=== PATIENT | male | born 1945 | race Caucasian/White ===

== ENCOUNTER 2018-07-06 07:11 | Outpatient (CLI) | payer BC, MEDICARE ==
[2018-07-06 11:20] LABS: Anion Gap 13 mmol/L (10-20); BUN (Urea Nitrogen) 15 mg/dL (8.4-25.7); Calc. Creatinine Clearance 0 mL/min (70-130); Calcium 10.3 mg/dL (7.8-10.44); Carbon Dioxide 27 mmol/L (23-31); Chloride 107 mmol/L (98-107); Estimated GFR-MDRD 88; Glucose 97 mg/dL (83-110); Potassium 4.3 mmol/L (3.5-5.1); Sodium 143 mmol/L (136-145)
[2018-07-06 11:28] LABS: Bilirubin Negative (Negative); Blood, Urine Negative (Negative); Clarity CLEAR (Clear); Glucose, Urine (Dipstick) Negative (Negative); Leukocyte Negative (Negative); Nitrite Negative (Negative); Protein, Urine (Dipstick) Negative (Neg-Trace); Specific Gravity, Urine 1.008 (1.002-1.036); Urobilinogen 0.2 mg/dL (0.2-1.0); pH, Urine 7.5 (5.0-9.0)
[2018-07-06 11:31] LABS: Bacteria/HPF None Seen HPF (None Seen); Hyaline Casts/LPF 0-3 HYALINE CAST LPF (0-3 Hyaline); RBC/HPF 0-3 HPF (0-3); Squamous Epithelial None Seen HPF (0-3); WBC/HPF 0-3 HPF (0-3)
== END 2018-07-06 07:12 | disposition home or self-care (01) ==
LOC: LABBT 07:11
PROVIDERS: ATTEND Orthopaedic Surgery
DX: Z01.818 Encounter for other preprocedural examination (principal); M19.011 Primary osteoarthritis, right shoulder
CPT/HCPCS: 80048; 81001; 93005; 93010

== ENCOUNTER 2018-07-06 09:15 | Inpatient (IN) | payer BC, MEDICARE ==
[2018-07-08 07:47] LABS: Hemoglobin 15.2 g/dL (14.0-18.0); Mean Corpuscular HGB CONC 34.6 g/dL (32.0-36.0); Mean Corpuscular Hemoglobin 31.2 pg (27.0-31.0); Mean Corpuscular Volume 90.2 fL (78.0-98.0); Mean Platelet Volume 5.8 fL (7.4-10.4); Platelet Count 266 thou/uL (130-400); RBC Distribution Width 11.9 % (11.5-14.5); Red Blood Cell (RBC) Count 4.86 mill/uL (4.70-6.10)
[2018-07-08] MEDS ORDERED: Tranexamic Acid 1,000 MG/10 ML VIAL ONE ×2 (08:04→12:27)
[2018-07-08] MEDS ORDERED: Sodium Chloride 0.9% 100 ML ONE (08:04)
[2018-07-08] MEDS ORDERED: Fentanyl 100 MCG/2 ML VIAL ONE ×2 (08:33→12:40)
[2018-07-08] MEDS ORDERED: Midazolam HCl 2 mg/2 ml Vial ONE (08:33)
[2018-07-08] MEDS ORDERED: Promethazine HCl 25 MG/ML VIAL IM PRN (09:15)
[2018-07-08] MEDS ORDERED: Zolpidem Tartrate 5 MG TAB PO PRN (09:15)
[2018-07-08] MEDS ORDERED: Ropivacaine 0.2% 550 ML 550 ML NERVE BLCK SCH (09:15)
[2018-07-08] MEDS ORDERED: Ondansetron PF 4 MG/2 ML Vial IVP PRN (09:15)
[2018-07-08] MEDS ORDERED: HYDROcodone/Acetaminophen 5/325 mg Tablet PO PRN ×2 (09:15)
[2018-07-08] MEDS ORDERED: traMADol HCl 50 MG TAB PO PRN ×2 (09:15)
[2018-07-08] MEDS ORDERED: Ketorolac Tromethamine 30 MG/ML VIAL IVP PRN (09:15)
[2018-07-08] MEDS ORDERED: Fentanyl 100 MCG/2 ML VIAL SLOW IVP SCH (12:45)
[2018-07-08] MEDS ORDERED: HYDROcodone/Acetaminophen 10/325 mg Tablet PO PRN ×2 (13:37)
[2018-07-08] MEDS ORDERED: diphenhydrAMINE 50 MG CAP PO PRN (13:37)
[2018-07-08] MEDS ORDERED: Methocarbamol 1 GM/10 ML VIAL SLOW IVP PRN (13:37)
[2018-07-08] MEDS ORDERED: Acetaminophen 325 MG TAB PO PRN (13:37)
[2018-07-08] MEDS ORDERED: Methocarbamol 500 MG TAB PO PRN (13:37)
[2018-07-08] MEDS ORDERED: Bisacodyl 10 MG SUPP PR PRN (13:37)
[2018-07-08] MEDS ORDERED: Milk Of Magnesia 30 ML UDCUP PO PRN (13:37)
[2018-07-08] MEDS ORDERED: Ropivacaine 0.5% HCl/PF (150 MG/30 ML VIAL) ONE (13:47)
[2018-07-08] MEDS ORDERED: Ropivacaine 0.2% HCl/PF (40 MG/20 ML VIAL) ONE (13:47)
[2018-07-08 13:56] VITALS: BMI 25.4
[2018-07-08] MEDS ORDERED: PROPOFOL 200 MG/20 ML VIAL ONE (14:55)
[2018-07-08] MEDS ORDERED: Ondansetron PF 4 MG/2 ML Vial ONE (14:55)
[2018-07-08] MEDS ORDERED: Succinylcholine Chloride 20 MG/ML 10 ml SYRINGE FS ONE (14:55)
[2018-07-08] MEDS ORDERED: Rocuronium Bromide 10 MG/ML (10ML VIAL) ONE (14:55)
--- NOTE | 2018-07-08 14:56 | OP ---
DATE OF PROCEDURE: 07/08/2018 PREOPERATIVE DIAGNOSIS: Right shoulder osteoarthritis. POSTOPERATIVE DIAGNOSIS: Right shoulder osteoarthritis. PROCEDURES PERFORMED: 1. Right total shoulder arthroplasty. 2. Biceps tenodesis, open. POTLINE MONITOR: Jass Salas PA-C. ANESTHESIA: The patient received general endotracheal intubation with interscalene block. ESTIMATED BLOOD LOSS: 200 mL. TOURNIQUET TIME: None. IMPLANTS: A 28 Flex Shoulder Aequalis humeral head, 50 mm x 19 mm, standard PC humeral head size 5B, and CortiLoc Pegged Glenoid L40. ANTIBIOTICS: Ancef 2 g and vancomycin 1 g. COMPLICATIONS: None. HISTORY OF PRESENT ILLNESS: Mr. Rico is a 72-year-old male, who presents after several years of right shoulder pain. The patient had failed conservative measures with therapy, anti-inflammatories, and injections. The patient desired right total shoulder arthroplasty. I discussed with the patient risks and benefits of right total shoulder arthroplasty including pain, scar, bleeding, infection, damage to vital structures, decreased range of motion and strength, continued pain despite surgical intervention, loss of life or limb. The patient understood risks and benefits and elected to proceed. DESCRIPTION OF PROCEDURE: Time-out was performed designating the patient's right upper extremity as the operative site based on site, consents, and marking. After time-out, the patient's right shoulder was prepped and draped in sterile fashion. We made a deltopectoral incision, came down to the deltopectoral interval, and found the vein, which was later sacrificed because of being side walled. We came down on the patient's conjoint and came down on the fascia and there I took 1 cm of the pec. Superiorly, we then placed our Kolbel in position to expose the shoulder. We came down on the biceps and did a peel for the subscapularis, came on the rotator interval, cut the biceps, took the subscapularis and capsule down, removed the inferior osteophytes, reduced, and I placed our Crego in position to expose the head with the soft tissue and bone element once we cut the humeral head. I felt we had a good cut. We needed to ultimately go back and take 2 more millimeters. I placed our central hole, which was 1 cm. Once around the biceps, we then broached up to 5. We had overall had a good alignment and position of everything. I was happy overall with the position of the patient's humeral head implant. We only took 2 more millimeters off because of exposure of the glenoid. We moved to the glenoid and placed our and our Bankart anteriorly, did a 360-degree release protecting the nerve throughout with blunt dissection inferiorly. I think there were some loose bodies in the inferior pouch. We then came back, cut 2 more millimeters off, and then placed our exposed the entire glenoid. We sized to a 40 large. I drilled our center hole, reamed, but there was very little reaming needed positional cartilage left. We then placed our implant at larger drill hole, and we placed the jig for cutting of three holes. We placed our pegs, removed, placed our trial, which fit firmly and in good position. We removed it. We washed, cleaned up holes, and placed our implant. We moved back to our humerus. We trialed with our overall alignment, and good fitting. I liked our overall positioning of the humerus. We then moved back to the humerus. We drilled 3 holes and passed for closure of our subscap 2 laterally to help with [id number] position. We then washed, placed our final 5B stem with a 50 head in position. We then closed our subscapularis with our #5 Ethibond. We closed our interval with #2 Ethibond. We closed, took our biceps and dunked it underneath, which we had cut, tied it with end-to-end to the interval sewing with #2 Ethibond and then ran right up and down to sew together, cut our notches. We used our [id number]-[id number] second, making double-row equivalent with our suture we had used to hold the subscapularis [id number] to suture more noted laterally than we drilled for and was circled around the stem. We cut those limbs, washed. We closed the deltopectoral interval. We closed the subcu and the skin with hemalatha. The patient will be admitted in hospital. Overnight, if his pain is controlled and doing well, he will be discharged home. He received preoperative antibiotics. He will be followed inhouse. Job ID: [id number]
[2018-07-08] MEDS: CEFAZOLIN 2 GM in Premix Bag 1 BAG IVPB SCH ×2 (15:31→23:20)
[2018-07-08] MEDS: Dextrose 5 %-0.45 % NaCl 1,000 ML IV SCH ×2 (15:34→20:32)
--- NOTE | 2018-07-08 15:37 | RAD ---
RIGHT SHOULDER TWO VIEWS: History: Post op. FINDINGS: Post-operative changes with placement of a humeral prosthesis is noted. No signs of any fracture. IMPRESSION: Post-operative changes of the shoulder. POS: TPC
[2018-07-08] MEDS ORDERED: Vancomycin HCl 1 GM in Premix Bag 1 BAG IVPB SCH (20:00)
[2018-07-08] MEDS: Famotidine 20 MG TAB PO SCH (20:22)
[2018-07-08] MEDS ORDERED: Atorvastatin Calcium 20 MG TAB PO SCH (21:00)
[2018-07-09] MEDS ORDERED: Aspirin 81 mg Enteric Coated Tablet PO SCH (09:00)
[2018-07-09] MEDS ORDERED: Multivitamin W/ Minerals 1 TAB PO SCH (09:00)
[2018-07-09] MEDS ORDERED: Amlodipine 5 MG TAB PO SCH (09:00)
[2018-07-09] MEDS: Famotidine 20 MG TAB PO SCH (09:42)
[2018-07-09 11:37] VITALS: BP 145/75; TEMP 98.5
== END 2018-07-09 11:50 | disposition home or self-care (01) | DRG 483 ==
LOC: SURG A 07-08 07:16
PROVIDERS: ADMIT Orthopaedic Surgery; ATTEND Orthopaedic Surgery
PROC: 0RRJ0JZ Replacement of Right Shoulder Joint with Synthetic Substitute, Open Approach (ICD-10-PCS; principal; 2018-07-08)
PROC: 0LS30ZZ Reposition Right Upper Arm Tendon, Open Approach (ICD-10-PCS; 2018-07-08)
DX: M19.011 Primary osteoarthritis, right shoulder (principal)
CPT/HCPCS: 36415; 70553; 80048; 81001; 85027; 93005; 93010; A4306; C1713; J1885; J2250; J2405; J2704; J2795; J3010; J3370; J7050

== ENCOUNTER 2018-07-07 08:48 | Outpatient (CLI) | payer BC, MEDICARE ==
--- NOTE | 2018-07-07 11:12 | MRI ---
MRI BRAIN WITH AND WITHOUT CONTRAST: INDICATIONS: TIA. FINDINGS: There is no acute territorial infarction, intracranial mass effect, midline shift, or ventriculomegal y. No parenchymal hemorrhagic susceptibility. There is no intraaxial pathologic enhancement. There is mild chronic ischemic disease of the cerebral white matter. IMPRESSION: 1. No acute territorial infarction or mass effect. 2. Mild chronic ischemic disease. POS: C
== END 2018-07-07 08:49 | disposition home or self-care (01) ==
LOC: MRI 08:48
PROVIDERS: ATTEND Family Medicine
DX: G45.9 Transient cerebral ischemic attack, unspecified (principal); I67.82 Cerebral ischemia
CPT/HCPCS: 70553

== ENCOUNTER 2019-02-01 12:06 | Emergency (ER) | payer BC, MEDICARE ==
[2019-02-01] MEDS ORDERED: Adacel (T-DAP) 0.5 ML SYRINGE ONE (12:16)
--- NOTE | 2019-02-01 12:37 | RAD ---
EXAM: 2 views of the right tibia/fibula HISTORY: Right leg laceration with pain COMPARISON: None FINDINGS: There is no evidence of acute fracture or dislocation. No soft tissue swelling is seen. No degenerative changes are seen in the knee or ankle. Vascular calcic lesions are seen. IMPRESSION: No evidence of acute osseous abnormality.
== END 2019-02-01 13:55 | disposition home or self-care (01) ==
LOC: SCSER 12:06
DX: S81.811A Laceration without foreign body, right lower leg, initial encounter (principal); E78.5 Hyperlipidemia, unspecified; I10 Essential (primary) hypertension; W20.8XXA Other cause of strike by thrown, projected or falling object, initial encounter
CPT/HCPCS: 12005; 90471; 90715